=== PATIENT | female | born 1940 | race Caucasian/White ===

== ENCOUNTER 2017-06-16 11:01 | Day surgery (SDC) | payer MEDICARE, MEDICAID ==
[~2017-06-16 11:01] MED LIST: Acetaminophen TAB* 325 MG PO PRN; Buffered Lidocaine 0.9% SYRIN* 5 ML/SYR SYRINGE INTRADERM ONE
[2017-06-16] MEDS ORDERED: Lidocaine 1% MPF* 2 ML VIAL ONE (13:10)
[2017-06-16] MEDS ORDERED: Tetracaine 0.5% OPTH.SOL 4 ML* 1 DROP BTL ONE (13:10)
[2017-06-16] MEDS ORDERED: Cyclopentolate 1% OPTH.SOL* 2 ML BTL ONE (13:10)
[2017-06-16] MEDS ORDERED: Neomycin/Polymy/Dex OPHTH.OIN* 3.5 GM ONE (13:10)
[2017-06-16] MEDS ORDERED: Tropicamide 1% OPTH.SOL* BTL ONE (13:10)
[2017-06-16] MEDS ORDERED: Phenylephrine 2.5% OPTH.SOL* 2 ML BTL ONE (13:10)
[2017-06-16] MEDS ORDERED: Buffered Lidocaine 0.9% SYRIN* 5 ML/SYR SYRINGE ONE (13:11)
[2017-06-16] MEDS ORDERED: Ketorolac 0.5% OPHTH (NF) 0.5 % 5 ML BTL ONE (13:11)
[2017-06-16] MEDS ORDERED: Midazolam* 1 MG/ML 2 ML VIAL (2 MG) ONE (14:12)
[2017-06-16 14:45] VITALS: BP 118/62
--- NOTE | 2017-06-16 15:49 | OP ---
DATE OF OPERATION/DATE OF DICTATION: 06/16/2017 - [facility] DATE OF : 1940. SURGEON: Dr. Ki Godwin. CONVEYOR LOADER: None. ANESTHESIA: Topical with intravenous sedation. PRE-OP DIAGNOSIS: Cataract, right eye. POST-OP DIAGNOSIS: Cataract, right eye. OPERATIVE PROCEDURE: Phacoemulsification and cataract extraction with posterior chamber intraocular lens implant, right eye. COMPLICATIONS: None. BLOOD LOSS: None. DESCRIPTION OF PROCEDURE: The patient was brought to the operating room and received a small amount of intra-venous sedation. A drop of Tetracaine was placed in her right eye. She was prepped and draped in the usual sterile fashion for ophthalmic surgery and attention was directed to the right eye where a speculum was placed. A paracentesis was created at the 11 o'clock position and 0.1 cc of 1 percent preservative-free Lidocaine was injected into the anterior chamber followed by DisCoVisc. The eye was digitally stabilized while a 2.75 mm keratome was used to create a triplanar clear corneal incision at the 9 o'clock position. A continuous curvilinear capsulorrhexis was created with a cystotome and Utrata forceps. BSS on a cannula was used to hydrodissect the lens from the capsule. Phacoemulsification was performed in a divide-and- conquer technique to create four fragments which were removed. Residual cortical material was removed with irrigation and aspiration. DisCoVisc was used to inflate the capsular bag and an AUOOTO 13.5 diopter lens was folded and inserted into the capsular bag. DisCoVisc was removed using irrigation and aspiration. BSS on a cannula was used to hydrate the corneal stroma and seal the wound. At the end of the case the pupil was round and the lens was centered. The eye was of normal pressure and the wound was water tight. The speculum was removed and topical Maxitrol ointment was placed on the surface of the eye. The eye was closed, patched and shielded and the patient was sent to the recovery room in stable condition with post operative instructions and follow-up appointment given. [id number]/[facility] #: [id number] MTDD
== END 2017-06-16 14:58 | disposition home or self-care (01) ==
LOC: OREAST 11:01
PROVIDERS: ATTEND Ophthalmology
DX: H25.11 Age-related nuclear cataract, right eye (principal); Z88.0 Allergy status to penicillin; Z87.891 Personal history of nicotine dependence
CPT/HCPCS: A9270-GY; J2250

== ENCOUNTER 2017-08-11 09:47 | Day surgery (SDC) | payer MEDICARE, MEDICAID ==
[2017-08-11] MEDS ORDERED: fentaNYL* 50 MCG/ML 2 ML VIAL (100 MCG VIAL) ONE (11:27)
[2017-08-11] MEDS ORDERED: Midazolam* 1 MG/ML 5 ML VIAL (5 MG) ONE (11:29)
[2017-08-11 13:44] VITALS: BP 121/67
[2017-08-11] MEDS ORDERED: Tetracaine 0.5% OPTH.SOL 4 ML* 1 DROP BTL ONE (14:18)
[2017-08-11] MEDS ORDERED: Neomycin/Polymy/Dex OPHTH.OIN* 3.5 GM ONE (14:18)
[2017-08-11] MEDS ORDERED: Cyclopentolate 1% OPTH.SOL* 2 ML BTL ONE (14:18)
[2017-08-11] MEDS ORDERED: Ketorolac 0.5% OPHTH (NF) 0.5 % 5 ML BTL ONE (14:18)
[2017-08-11] MEDS ORDERED: Tropicamide 1% OPTH.SOL* BTL ONE (14:18)
[2017-08-11] MEDS ORDERED: Lidocaine 1% MPF* 2 ML VIAL ONE (14:18)
[2017-08-11] MEDS ORDERED: Phenylephrine 2.5% OPTH.SOL* 2 ML BTL ONE (14:18)
--- NOTE | 2017-08-12 03:09 | OP ---
DATE OF OPERATION: 08/11/17 - [facility] DATE OF : 40 SURGEON: Ki Godwin MD. HEAD WOOD GRINDER: None. ANESTHESIOLOGIST: Chaitanya Aguilera MD ANESTHESIA: Topical MAC. PRE-OP DIAGNOSES: Aphakia with astigmatism. POST-OP DIAGNOSES: Aphakia with astigmatism. OPERATIVE PROCEDURE: Limbal relaxing incisions and secondary IOL implant into sulcus. COMPLICATIONS: Perforation of globe superiorly. DESCRIPTION OF PROCEDURE: The patient was seen preoperatively in the holding area and a vic was made at the 6 o'clock position of her limbus while she was in an upright position. She was brought to the operating room and given a small amount of intravenous sedation and a drop of tetracaine in her left eye. The patient was prepped and draped in the usual sterile fashion for ophthalmic surgery and attention was directed to the left eye where a speculum was placed. A Alonso marker and marking pen were used to vic the axes to receive the limbal relaxing incision near the 12 o'clock and 6 o'clock meridian of approximately two clock hours. A 600 micron alex blade was used to create a partial thickness corneal incision in an arc manner in the previously mentioned meridian. Approximately 0.5 mm from the end of the limbus. A paracentesis was created at the 5 o'clock position and the 10 o'clock position. Vitrectomy was introduced into the eye in a bimanual fashion and an anterior vitrectomy was performed to remove vitreous which was present in the anterior chamber. DisCoVisc was then introduced into the anterior chamber to deepen the sulcus. Sufficient anterior capsule support was available. A small leak was noted superiorly as one of the limbal relaxing incisions had gone deep, so a 10-0 nylon suture was placed gently in this position to secure it. A triplanar clear corneal incision was created with a 2.75 mm keratome at the 3 o'clock position. An MN60AC 10 diopter 3-piece IOL was folded outside the eye and atraumatically inserted into the sulcus. The trailing was dunked into the sulcus using a curved tying forceps. The bimanual vitrectomy units were introduced posterior to the lens to remove viscoelastic from this position. Irrigation and aspiration was then performed anterior to the lens to remove viscoelastic from this position. BSS on a cannula was was used to seal the wound by hydrating the corneal stroma. At the end of the case, the lens was centered stable and in the sulcus. The pupil was round. There was no vitreous noted anterior to the lens. The limbal relaxing incisions were positioned properly with a single 10-0 nylon superiorly securing the wounds, so it did not leak. Topical Maxitrol ointment was placed on the surface of the eye and the patient was given a patch and a shield. She was sent to recovery room in stable condition with postop instructions and followup appointment given. [id number]/[id number] #: [id number] YOSI
== END 2017-08-11 13:31 | disposition home or self-care (01) ==
LOC: OREAST 09:47
PROVIDERS: ATTEND Ophthalmology
DX: H27.02 Aphakia, left eye (principal); H52.202 Unspecified astigmatism, left eye; H59.212 Accidental puncture and laceration of left eye and adnexa during an ophthalmic procedure; Z88.0 Allergy status to penicillin; Z87.891 Personal history of nicotine dependence; H26.9 Unspecified cataract
CPT/HCPCS: A9270-GY; J2250; J3010; V2632

== ENCOUNTER 2024-07-06 22:08 | Observation (INO) ==
[2024-07-06 23:57] LABS: ABS Basophils 0.1 10^3/uL (0.0-0.1); ABS Eosinophils 0.1 10^3/uL (0.0-0.5); ABS Lymphocytes 1.1 10^3/uL (1.0-4.8); Eosinophil % 0.9 %; Hematocrit 40.9 % (35-45); Hemoglobin 13.4 g/dL (11.5-14.3); Lymphocyte % 9.4 %; Mean Corpuscular Hemoglobin 29.6 pg (27-33); Mean Corpuscular Hgb Conc 32.7 g/dL (31-36); Mean Corpuscular Volume 90.5 fL (80-97); Mean Platelet Volume 7.9 fL (7.5-11.2); Platelet Count 349 10^3/uL (150-450); Red Blood Count 4.52 10^6/uL (3.63-4.92); Red Cell Distribution Width 14.1 % (12-17); White Blood Count 11.3 10^3/uL (3.8-11.8)
[2024-07-07 00:33] LABS: Albumin 3.9 g/dL (3.2-5.2); Albumin/Globulin Ratio 1.6 (1-3); C Reactive Protein 3.89 mg/L (<8.01); Creatinine, Serum 0.72 mg/dL (0.51-0.95); Globulin 2.4 g/dL (2-4); Potassium 3.8 mmol/L (3.5-5.0); Total Bilirubin 0.4 mg/dL (0.2-1.0); Total Protein 6.3 g/dL (6.4-8.9); eGFR CKD-EPI 82.9 (>60)
[2024-07-07 01:17] LABS: Urine Appearance Turbid; Urine Bilirubin Negative (Negative); Urine Blood Negative (Negative); Urine Color Colorless; Urine Glucose Negative (Negative); Urine Ketones Negative (Negative); Urine Nitrite Negative (Negative); Urine Protein Negative (Negative); Urine Specific Gravity 1.007 (1.002-1.030); Urine Urobilinogen Negative (Negative); Urine pH 7.5 (5.0-8.0)
[2024-07-07 01:34] LABS: Urine Bacteria Absent /HPF (Absent); Urine Red Blood Cell 2+(6-10/hpf) /HPF (0-Trace); Urine Squamous Epithelial Cell Present /HPF (Absent); Urine White Blood Cell 3+(>20/hpf) /HPF (0-Trace)
[2024-07-07] MEDS: Ondansetron 4 mg VIAL 2 MG/ML 2 ml VIAL IV ONE (03:02)
[2024-07-07] MEDS: Ciprofloxacin 400mg IVPREMIX 400 MG/200 ML BAG IVPB ONE (05:00)
[2024-07-07] MEDS: Iohexol 300 (CONTRAST) 10 ML SDV IV ONE (07:15)
[2024-07-07] MEDS: Al Hydrox/Mg Hydrox/Simet LIQ 30 ML UDC PO ONE (07:16)
[2024-07-07] MEDS ORDERED: Ondansetron 4 mg VIAL 2 MG/ML 2 ml VIAL IV PRN (10:51)
[2024-07-07] MEDS ORDERED: Morphine 2 MG/ML SYRINGE IV PRN (10:58)
[2024-07-07] MEDS: Lactated Ringers 1000 ml BAG 1,000 ML IV SCH (11:08)
[2024-07-07] MEDS: metroNIDAZOLE IV 500 MG/100ML 500 MG/100 ML BAG IVPB ONE (11:41)
[2024-07-07] MEDS ORDERED: Ondansetron 4 mg VIAL 2 MG/ML 2 ml VIAL ONE (12:39)
[2024-07-07] MEDS ORDERED: Dexamethasone IV 4 MG/ML VIAL 1 ml VIAL ONE (12:39)
[2024-07-07] MEDS ORDERED: Propofol 10 MG/ML 20 ML BTL ONE (12:39)
[2024-07-07] MEDS ORDERED: Rocuronium 50 mg VIAL 10 mg/ml 5 ml VIAL (50 mg) ONE (12:39)
[2024-07-07] MEDS ORDERED: Midazolam 2 mg/2 ml VIAL 1 mg/ml 2 ml VIAL (2 mg) ONE (12:39)
[2024-07-07] MEDS ORDERED: Lidocaine 2% PF 5 ML VIAL ONE (12:39)
[2024-07-07] MEDS ORDERED: fentaNYL 100 mcg/2 ml 50 MCG/ML VIAL ONE ×3 (12:39→14:05)
[2024-07-07] MEDS ORDERED: Bupivacaine 0.25% EPI 200,000 30 ML SDV ONE (13:17)
[2024-07-07 17:07] VITALS: BP 115/70
== END 2024-07-07 17:11 | disposition home or self-care (01) ==
LOC: ED 22:08 → EDHOLD 22:08 → AA 07-07 12:05
PROVIDERS: ADMIT Surgery; ATTEND Surgery